=== PATIENT | female | born 1940 | race African-American/Black ===

== ENCOUNTER 2017-08-18 09:54 | Outpatient (CLI) | payer MEDICARE, BC ==
--- NOTE | 2017-08-18 10:33 | RAD ---
CERVICAL SPINE SERIES 3 VIEWS: HISTORY: The patient is status post fall 3 weeks ago. History of surgery. FINDINGS: Extensive postoperative changes of the spine are noted. This includes anterior plate and screws with fixation at the C4, C5, C6, and T1 levels. Compression changes superior end plate of C7 are noted. Markers of disk implants are seen at the C3-4, C4-5, and C7-T1 levels. Posterior facet screws exten d over the same levels. Laminectomy changes are seen from C3 to C5. There is minimal anterolisthesi s of C3 on C4. Posterior reginaldo are present. IMPRESSION: Postoperative changes of the spine as discussed above. POS: [facility]
== END 2017-08-18 09:55 | disposition home or self-care (01) ==
LOC: TBSIIMAG 09:54
PROVIDERS: ATTEND Neurological Surgery
DX: M54.2 Cervicalgia (principal); Z98.1 Arthrodesis status
CPT/HCPCS: 72040

== ENCOUNTER 2017-09-13 15:44 | Outpatient (CLI) | payer MEDICARE, BC ==
--- NOTE | 2017-09-13 16:19 | RAD ---
CERVICAL SPINE THREE VIEWS: History: Neck pain. Prior surgery. Comparison: 08-18-17 FINDINGS: Anterior and posterior operative fixation at the C4-5-6-7-T1 level is again demonstrated. No perihard altman lucency. Alignment is unchanged. Compression at the C7 vertebral body is similar in appearance. Osseous structures are markedly demineralized. There is prominent rightward convex curvature of the p artially visualized thoracic spine. IMPRESSION: 1. Stable post-operative appearance of the cervical spine. 2. Osteoporosis. POS: [facility]
== END 2017-09-13 15:45 | disposition home or self-care (01) ==
LOC: TBSIIMAG 15:44
PROVIDERS: ATTEND Neurological Surgery
DX: S12.9XXA Fracture of neck, unspecified, initial encounter (principal); M81.0 Age-related osteoporosis without current pathological fracture; Z98.1 Arthrodesis status
CPT/HCPCS: 72040

== ENCOUNTER 2017-12-14 14:44 | Outpatient (CLI) | payer MEDICARE, BC ==
--- NOTE | 2017-12-14 15:15 | RAD ---
THREE VIEWS CERVICAL SPINE: History: Follow up. Nondisplaced fracture of cervical spine. FINDINGS: AP, lateral, and open mouth odontoid view cervical spine obtained. The patient had previous posterior decompression of the C3 and C4 vertebra. ACDF plates and screws as well as posterior fusion hardware seen. Superior endplate C7 irregularity is seen. Otherwise, cervical spine radiographs are stable. IMPRESSION: Post-surgical changes with mid and lower cervical spine fusion. No definite evidence of acute cervica l spine fracture seen. If there is concern for upper cervical fractures, correlation with CT may be o f use. POS: [facility]
== END 2017-12-14 14:45 | disposition home or self-care (01) ==
LOC: TBSIIMAG 14:44
PROVIDERS: ATTEND Neurological Surgery
DX: S12.101D Unspecified nondisplaced fracture of second cervical vertebra, subsequent encounter for fracture with routine healing (principal); Z98.1 Arthrodesis status
CPT/HCPCS: 72040